=== PATIENT | female | born 1945 | race Caucasian/White ===

== ENCOUNTER 2017-07-24 16:03 | Emergency (ER) | payer MEDICARE ==
[~2017-07-24] VITALS: Ht 162.6 cm; Wt 71.5 kg
[~2017-07-24 16:03] MED LIST: ATEN1TAB74 PO; CEPH500C3 PO; CIPR500T2 PO; DARV PO; EZET10 PO; METR-1 PO; OYST500T77 PO; POTA-243 PO; SIMV5TAB32 PO; TAB-TAB PO
[2017-07-24 16:08] VITALS: BP 173/84; PULSE 81; RESP 16; TEMP 99.3; O2SAT 96
--- NOTE | 2017-07-24 16:53 | RADRPT ---
EXAM DATE/TIME: 07/24/2017 16:30 [place] COMPARISON: No previous studies available for comparison. INDICATIONS : Fell and hit posterior head; patient on Xarelto. RADIATION DOSE: 58.20 CTDIvol (mGy) MEDICAL HISTORY : Hypertension. SURGICAL HISTORY : Appendectomy. ENCOUNTER: Initial ACUITY: 1 day PAIN SCALE: 0/10 LOCATION: cranial TECHNIQUE: Multiple contiguous axial images were obtained of the head. Using automated exposure control and adj ustment of the mA and/or kV according to patient size, radiation dose was kept as low as reasonably a chievable to obtain optimal diagnostic quality images. DICOM format image data is available electro nically for review and comparison. FINDINGS: CEREBRUM: The ventricles are normal for age. No evidence of midline shift, mass lesion, hemorrhage or acute in farction. No extra-axial fluid collections are seen. POSTERIOR FOSSA: The cerebellum and brainstem are intact. The 4th ventricle is midline. The cerebellopontine angle i s unremarkable. EXTRACRANIAL: The visualized portion of the orbits is intact. SKULL: Right parietal scalp hematoma. No evidence of underlying skull fracture CONCLUSION: No acute intracranial injury. Ap Serna MD on July 24, 2017 at 16:50 Board Certified Radiologist. This report was verified electronically.
--- NOTE | 2017-07-24 17:09 | PD ---
HPI . Head injury Chief Complaint: Fall Time Seen by Provider: 16:14 Travel History International Travel<30 days: No Contact w/Intl Traveler<30days: No Traveled to known affect area: No History of Present Illness HPI This patient presents for the evaluation of a possible head injury. She is on Xarelto. She had a trip and fall yesterday striking the back of her head. He reports no loss of consciousness. She does not have any symptoms suggestive of a head injury. She called her primary care physician who suggested that she presented to the emergency department for CT because of the Xarelto. PFSH Past Medical History Hx Anticoagulant Therapy: Yes (XARELTO) High Cholesterol: Yes Hypertension: Yes Menopausal: Yes Past Surgical History Abdominal Surgery: Yes (PERFORATED COLON 8 YRS AGO) Appendectomy: Yes Social History Alcohol Use: Yes (SOCIALLY) Tobacco Use: No Substance Use: No Allergies-Medications (Allergen,Severity, Reaction): Coded Allergies: No Known Allergies (Verified , 12/04/08) Reported Meds & Prescriptions Reported Meds & Active Scripts Active Darvocet-N 100 (Propoxyphene Napsylate/Acetam) Tab 1 Tab PO Q6HPRN PAIN NEEDED FOR PAIN Flagyl (Metronidazole) 500 Mg Tab 500 Mg PO BID Cipro (Ciprofloxacin) 500 Mg Tab 1 Tab PO BID Keflex (Cephalexin Monohydrate) 500 Mg Cap 500 Mg PO Q8 Reported Calcium 500 Mg Tab 500 Mg PO DAILY Multivitamin (Multivitamins) 1 Tab Tab 1 Tab PO DAILY K-Dur (Potassium Chloride) 10 Meq Tabcr 0 Mg PO UNKNOWN DOSE Zocor (Simvastatin) 5 Mg Tab 0 Mg PO DAILY UNKNOWN DOSE Zetia (Ezetimibe) 10 Mg Tab 20 Mg PO DAILY UNKNOWN DOSE Tenormin (Atenolol) 50 Mg Tab 50 Mg PO DAILY Review of Systems Except as stated in HPI: all other systems reviewed are Neg Eyes: No: Blurred Vision HENT: No: Headaches, Lightheadedness Gastrointestinal: No: Nausea Physical Exam Narrative GENERAL: Pleasant woman who is in no distress. She is awake and alert SKIN: Warm and dry. HEAD: Contusion to the posterior scalp. EYES: Pupils equal and round. Extraocular movements are intact. ENT: No nasal bleeding or discharge. Mucous membranes pink and moist. NECK: Trachea midline. Neck is nontender. CARDIOVASCULAR: Regular rate and rhythm. RESPIRATORY: No accessory muscle use. GASTROINTESTINAL: Abdomen soft, non-tender, nondistended. MUSCULOSKELETAL: No obvious deformities. No edema. NEUROLOGICAL: Awake and alert. No obvious cranial nerve deficits. Motor grossly within normal limits. Normal speech. PSYCHIATRIC: Appropriate mood and affect; insight and judgment normal. Data Data Last Documented VS Vital Signs Date Time Temp Pulse Resp B/P (MAP) Pulse Ox O2 Delivery O2 Flow Rate FiO2 07/24/17 16:08 99.3 81 16 173/84 (113) [address] Brain W/O Iv Contrast(Rout) (07/24/17 16:14) [facility] Medical Decision Making Medical Screen Exam Complete: Yes Emergency Medical Condition: Yes Differential Diagnosis My differential diagnosis of head trauma includes but is not limited to scalp contusion, concussion, intracerebral hemorrhage. Narrative Course This patient presents for evaluation of a head injury. She had a blow to her head yesterday. She is on Xarelto. Last Impressions Head CT 07/24/17 1614 Signed Impressions: Service Date/Time: Monday, July 24, 2017 16:30 - CONCLUSION: No acute intracranial injury. Ap Serna MD Diagnosis Primary Impression: Scalp contusion Qualified Codes: S00.03XA - Contusion of scalp, initial encounter Patient Instructions: General Instructions, Scalp Contusion in Adults (ED) Disposition: 01 DISCHARGE HOME Condition: Stable Lucia Grubbs MD Jul 24, 2017 17:08
[2017-07-24] MEDS ORDERED: POTA10TA2 PO (17:16)
[2017-07-24] MEDS ORDERED: XARE20TA PO (17:16)
[2017-07-24] MEDS ORDERED: MULTTAB67 PO (17:16)
[2017-07-24] MEDS ORDERED: CALC1TAB12 PO (17:16)
[2017-07-24] MEDS ORDERED: ATEN100T PO (17:16)
[2017-07-24] MEDS ORDERED: SIMV20TA PO (17:16)
[2017-07-24] MEDS ORDERED: HYDR25TA5 PO (17:16)
[2017-07-24] MEDS ORDERED: LISI10TA3 PO (17:16)
[2017-07-24] MEDS ORDERED: CLOR3.755 PO (17:16)
[2017-07-24] MEDS ORDERED: RANI150T PO (17:16)
[2017-07-24 17:24] VITALS: BP 162/76
== END 2017-07-24 17:26 | disposition home or self-care (01) ==
LOC: PHED 16:03
DX: S00.03XA Contusion of scalp, initial encounter (principal); W01.0XXA Fall on same level from slipping, tripping and stumbling without subsequent striking against object, initial encounter; Z79.01 Long term (current) use of anticoagulants; E78.00 Pure hypercholesterolemia, unspecified; I10 Essential (primary) hypertension
CPT/HCPCS: 70450; 99284

== ENCOUNTER 2018-01-30 06:35 | Day surgery (SDC) | payer MEDICARE ==
[~2018-01-30] VITALS: Ht 162.6 cm; Wt 70.8 kg
[~2018-01-30 06:35] MED LIST changes: +ATEN100T PO; -ATEN1TAB74 PO; +CALC1TAB12 PO; -CEPH500C3 PO; -CIPR500T2 PO; +CLOR3.755 PO; -DARV PO; -EZET10 PO; +HYDR25TA5 PO; +LISI10TA3 PO; -METR-1 PO; +MULTTAB67 PO; -OYST500T77 PO; -POTA-243 PO; +POTA10TA2 PO; +RANI150T PO; +SIMV20TA PO; -SIMV5TAB32 PO; -TAB-TAB PO; +XARE20TA PO
[2018-01-30] MEDS ORDERED: IOHEXOL 350 MG/ML 100 ML BTL (for Cath Lab) OTHER ONE (06:36)
[2018-01-30] MEDS ORDERED: SODIUM CHLOR 0.9% 1000 ML INJ 1,000 ML IV SCH ×2 (07:21→09:23)
[2018-01-30 07:30] VITALS: BP 152/83; PULSE 81; RESP 18; TEMP 98.6; O2SAT 96
[2018-01-30] MEDS ORDERED: ASPIRIN 325 MG TAB PO SCH (07:30)
[2018-01-30] MEDS ORDERED: MIDAZOLAM HCL 2 MG/2 ML VIAL IV PUSH SCH (07:30)
[2018-01-30] MEDS ORDERED: diphenhydrAMINE HCL 50 MG/ML VIAL IV PUSH SCH (07:30)
[2018-01-30] MEDS ORDERED: VITA100064 PO (07:41)
[2018-01-30] MEDS ORDERED: FLAV3.7O PO (07:41)
[2018-01-30] MEDS ORDERED: ECASA81 PO (07:41)
[2018-01-30] MEDS ORDERED: LISI-515 PO (07:41)
[2018-01-30] MEDS ORDERED: DICY20TA10 PO (07:41)
[2018-01-30] MEDS ORDERED: GARL3CAP P-ARTICULR (07:41)
[2018-01-30] MEDS ORDERED: VITATAB43 PO (07:41)
[2018-01-30] MEDS ORDERED: FIBE625T PO (07:41)
[2018-01-30 07:42] LABS: AUTOMATED NEUTROPHIL # 2.2 TH/MM3 (1.8-7.7); BASOPHIL % 0.4 % (0.0-2.0); EOSINOPHIL # 0.1 TH/MM3 (0-0.4); EOSINOPHIL % 1.6 % (0.0-4.0); HEMOGLOBIN 13.3 GM/DL (11.6-15.3); LYMPH % 32.7 % (9.0-44.0); LYMPHOCYTE # 1.4 TH/MM3 (1.0-4.8); MEAN CELL VOLUME 99.6 FL (80.0-100.0); MEAN CORPUSCULAR HGB CONC 34.2 % (32.0-36.0); MEAN PLATELET VOLUME 8.3 FL (7.0-11.0); MONO % 11.4 % (0.0-8.0); MONOCYTE # 0.5 TH/MM3 (0-0.9); NEUT % 53.9 % (16.0-70.0); PLATELET COUNT 151 TH/MM3 (150-450); RED BLOOD COUNT 3.92 MIL/MM3 (4.00-5.30); RED CELL DISTRIBUTION WIDTH 13.6 % (11.6-17.2); WHITE BLOOD COUNT 4.1 TH/MM3 (4.0-11.0)
[2018-01-30 07:52] LABS: INTERNATIONAL NORMALIZED RATIO 1.1 RATIO
[2018-01-30 08:02] LABS: BICARBONATE 30.4 MEQ/L (21.0-32.0); CALCIUM 8.6 MG/DL (8.5-10.1); CREATININE 0.9 MG/DL (0.50-1.00)
[2018-01-30] MEDS ORDERED: MIDAZOLAM HCL 2 MG/2 ML VIAL ONE (08:47)
[2018-01-30] MEDS ORDERED: ATROPINE SULFATE 1 MG/ML VIAL IV PUSH PRN (09:30)
[2018-01-30] MEDS ORDERED: BACITRACIN OINT 0.9 GM PKT TOP ONE (09:30)
[2018-01-30] MEDS ORDERED: SODIUM CHLORIDE 0.9% FLUSH 10 ML FLUSH IV FLUSH PRN (09:30)
[2018-01-30] MEDS ORDERED: SODIUM CHLOR 0.9% 250 ML INJ 250 ML IV PRN (09:30)
[2018-01-30] MEDS ORDERED: MISC INFORMATION XX ONE (09:30)
[2018-01-30] MEDS ORDERED: ONDANSETRON HCL 4 MG/2 ML VIAL IV PUSH PRN (09:30)
[2018-01-30] MEDS ORDERED: LORazepam 2 MG/ML VIAL IV PUSH PRN (09:30)
--- NOTE | 2018-01-30 10:03 | MA ---
cc: Rudy Hill MD 01/30/2018 PROCEDURE PERFORMED: Left heart catheterization. Coronary arteriography. Left ventriculography. PROCEDURE TECHNIQUE: The patient was brought to the cardiac catheterization laboratory following informed consent. The area of the right groin prepped and draped in the usual sterile manner. Following 50 mL of 1% Xylocaine for local anesthesia in the right groin, a 4 [place]amanian short introducer sheath was placed in the right femoral artery via the modified Seldinger technique. Through this introducer sheath, a 4 [place]amanian diagnostic catheter system including a JL4, JL5, 3DRC, and straight pigtail were used for the left heart study. Multiple projections of the left and right coronary arteries were taken and a left ventriculogram was done in the JENSEN 30 degree projection only. At completion of the diagnostic procedure, the catheters and introducer were removed and adequate hemostasis was maintained with the use of manual pressure. The patient tolerated the procedure well. There were no immediate complications. HEMODYNAMIC DATA: Left ventricle: 146/15 mmHg. Aorta: 150/77 mmHg. Mean aortic pressure 107 mmHg. For complete hemodynamic details, please see accompanying paperwork. ANGIOGRAPHIC FINDINGS: Left ventricle: Left ventricle demonstrates normal end-systolic and diastolic dimensions. Overall left ventricular contractility is normal. Estimated left ventricular ejection fraction is 70%. The aortic valve is trileaflet and opens normally. The aortic root and proximal portion of the ascending aorta is mildly dilated and ectatic as is the arch and proximal portion of the thoracic descending aorta. No mitral regurgitation is seen. Left Coronary Artery: Left main trunk: The left coronary artery arises normally from the left coronary sinus. The left main trunk is a large caliber vessel and is normal. Left Anterior Descending Artery: The LAD is a moderate caliber vessel whose course is to the apex. The LAD gives rise to 2 diagonal branches and multiple septal perforating branches. The LAD has some mild luminal irregularities throughout with up to 10% stenosis in the mid segment. The diagonal branches are small to medium in caliber and normal. Circumflex: Nondominant. The main circumflex gives rise to a lateral branch and a posterolateral branch. The main circumflex is normal. The lateral branch is moderate in caliber, tortuous and has only mild luminal irregularities. The posterolateral branch is small to medium in caliber and has mild irregularities. Right Coronary Artery: Dominant. The right coronary artery gives rise to a right ventricular marginal branch, posterior descending branch and a posterior ventricular branch. The right coronary artery is a moderate caliber vessel and normal. The PDA and posterior ventricular branches are small in caliber and normal. DIAGNOSIS: 1. Mild coronary atherosclerosis. 2. Normal left ventricular function. 3. Paroxysmal atrial fibrillation. COMMENTS/RECOMMENDATIONS: Angiographically, this patient does not demonstrate any hemodynamically significant epicardial coronary disease. She will be kept on medical therapy and treatment directed toward her symptoms and paroxysmal atrial fibrillation. She will be discharged to home later today. A trial of propafenone ER 225 mg by mouth twice a day will be prescribed. Followup has been arranged in 2 weeks. MD CARRINGTON Longoria/YVROSE , 09:40 AM , 10:01 AM
[2018-01-30] MEDS ORDERED: SODIUM CHLORIDE 0.9% FLUSH 10 ML FLUSH IV FLUSH SCH (21:00)
== END 2018-01-30 14:30 | disposition home or self-care (01) ==
LOC: HDOC 06:35 → HDIC 06:36 → HDOC 14:30
PROVIDERS: ATTEND Internal Medicine Interventional Cardiology
DX: I25.10 Atherosclerotic heart disease of native coronary artery without angina pectoris (principal); I48.0 Paroxysmal atrial fibrillation; Z01.818 Encounter for other preprocedural examination
CPT/HCPCS: 80048; 85025; 85610; 85730; 93458; 99152; 99153; C1769; C1893; J2250; J3010; Q9967

== ENCOUNTER 2018-04-03 06:47 | Day surgery (SDC) | payer MEDICARE ==
[~2018-04-03 06:47] MED LIST changes: +DICY20TA10 PO; +FIBE625T PO; +FLAV3.7O PO; +GARL3CAP P-ARTICULR; +LISI-515 PO; -LISI10TA3 PO; +VITA100064 PO; +VITATAB43 PO
[2018-04-03] MEDS ORDERED: INSULIN HUMAN REGULAR 1,000 UNITS/10 ML VIAL SQ PRN (07:30)
[2018-04-03] MEDS ORDERED: SODIUM CHLORID 0.9% 500 ML IV PRN (07:30)
[2018-04-03] MEDS ORDERED: CHLORHEXIDINE GLUCONATE 2 % 1 PACK (2 CLOTHS) TOPICAL PRN (07:30)
[2018-04-03] MEDS ORDERED: METOPROLOL TARTRATE 25 MG TAB PO PRN (07:30)
[2018-04-03] MEDS ORDERED: LACTATED RINGER'S 1000 ML IV PRN (07:30)
[2018-04-03] MEDS ORDERED: POVIDONE IODINE 5% (ANTISEPSIS KIT) 4 APPLICATIONS EACH NARE PRN (07:30)
--- NOTE | 2018-04-03 19:04 | EKG ---
Date Performed: 04/03/2018 Time Performed: 07:37:34 PTAGE: 73 years EKG: Atrial fibrillation. Left anterior fascicular block Extensive ST-T changes may be due to my ocardial ischemia Abnormal ECG NO PREVIOUS TRACING DOCTOR: Kamran Burgos Interpretating Date/Time 04/03/2018 19:03:39
--- NOTE | 2018-04-03 19:32 | EKG ---
Date Performed: 04/03/2018 Time Performed: 08:45:50 PTAGE: 73 years EKG: Sinus rhythm with PAC(s). Left anterior fascicular block Extensive ST-T changes may be due to myocardial ischemia Since the previous tracing, no significant change noted Abnormal ECG PREVIOUS TRACING : 04/03/2018 07.37 DOCTOR: Kamran Burgos Interpretating Date/Time 04/03/2018 19:31:56
== END 2018-04-03 09:30 | disposition home or self-care (01) ==
LOC: HDOC 06:47 → HDIC 06:48 → HDOC 09:30
PROVIDERS: ATTEND Internal Medicine Interventional Cardiology
DX: I48.91 Unspecified atrial fibrillation (principal); I44.4 Left anterior fascicular block
CPT/HCPCS: 92960; 93005